=== PATIENT | male | born 1975 | race Hispanic/Latino ===

== ENCOUNTER → 2019-03-26 | Outpatient (CLI) | payer BC ==
[~2019-03-26] MED LIST: FLOMAX0.4 MG PO
--- NOTE | 2019-03-26 12:46 | Diagnostic Imaging Report ---
Exam: KUB - 2 views Clinical History: Renal calculus Comparison: None Findings: Right internal nephroureteral stent in place. 6 mm calcific density projecting over the right proximal ureter just lateral to the stent is consistent with ureteral calculus. No other radiographically apparent urinary calculi. Nonobstructive bowel gas pattern. No free air. Degenerative changes of both hip joints. Impression: 6 mm right ureteral calculus. Right internal nephroureteral stent in place. Signed by: Harvey Sewell MD on 03/26/2019 12:43 PM
== END ==
LOC: RAD 10:52
PROVIDERS: ATTEND Family Medicine
DX: N20.0 Calculus of kidney (principal)
CPT/HCPCS: 74018

== ENCOUNTER → 2019-04-13 | Day surgery (SDC) | payer BC ==
[~2019-04-13] MED LIST changes: +ACETAMINOPHEN/CODEINE 300MG - 30MG TAB ONE; +CEFAZOLIN SOD 1 GM/NS 50ML 50 ML IV ONE; +DEXAMETHASONE SOD PHOS INJ 4 MG/ML VIAL ONE; +FENTANYL CITRATE/PF 100MCG/2 ML INJ ONE; +LIDOCAINE HCL 2% LOCAL INJ 5 ML SDV VIAL INJ ONE; +MIDAZOLAM HCL 2 MG/2 ML VIAL ONE; +ONDANSETRON HCL INJ 2MG/ML 2ML 2 MG/ML VIAL ONE; +PROMETHAZINE HCL (IM) 25 MG/ML VIAL ONE; +PROPOFOL IV EMULSION 10 MG/ML 20 ML VIAL ONE; +SEVOFLURANE INHAL SOLN 250 ML PEN BTL ONE
[2019-04-13 12:25] VITALS: BP 104/75
--- NOTE | 2019-04-13 16:08 | Operative Report ---
DATE OF PROCEDURE: 04/13/2019 SURGEON: Elaine Bonilla MD SERVICE: Urology. PREOPERATIVE DIAGNOSES: 1. Right upper ureter calculus. 2. Right double-J stent. 3. Microhematuria. POSTOPERATIVE DIAGNOSES: 1. Right upper ureter calculus. 2. Right double-J stent. 3. Microhematuria. OPERATION PERFORMED: ESWL lithotripsy of a stone. SUPERINTENDENT RECREATION: None. ANESTHESIA: General. CLINICAL INDICATION: Note, this is a 44-year-old patient, presented with stone in the upper ureter on the right side, this has stones, were manipulated, double-J stent was placed on the right side. The patient was brought for lithotripsy. Procedure was discussed with the patient and his . He knows that this is just one step in the management, may require additional procedures. The procedure was described and knows what is going to be done. DESCRIPTION OF PROCEDURE AND FINDINGS: After appropriate level of anesthesia was achieved, the patient was placed in supine position. The stone was brought to the focus of treatment and treated with 3000 shock. The 1st 360 per minute and then it was moved to 90 per minute and eventually 120 per minute. The stone disintegrated very well. The patient's procedure went well, he was transferred in satisfactory condition to recovery room after the procedure. Postoperative all of this given. He will be followed in 2 weeks in the office for further plan of management. Elaine Bonilla MD [facility] /[id number]
== END | disposition home or self-care (01) ==
LOC: OR 06:14
PROVIDERS: ATTEND Urology
DX: N20.1 Calculus of ureter (principal); Z96.0 Presence of urogenital implants; Z01.810 Encounter for preprocedural cardiovascular examination
CPT/HCPCS: 50590; 93005; J0690; J1100; J2001; J2250; J2405; J2550; J2704; J3010

== ENCOUNTER → 2019-04-30 | Outpatient (CLI) | payer BC ==
[~2019-04-30] MED LIST changes: -ACETAMINOPHEN/CODEINE 300MG - 30MG TAB ONE; -CEFAZOLIN SOD 1 GM/NS 50ML 50 ML IV ONE; -DEXAMETHASONE SOD PHOS INJ 4 MG/ML VIAL ONE; -FENTANYL CITRATE/PF 100MCG/2 ML INJ ONE; -LIDOCAINE HCL 2% LOCAL INJ 5 ML SDV VIAL INJ ONE; -MIDAZOLAM HCL 2 MG/2 ML VIAL ONE; -ONDANSETRON HCL INJ 2MG/ML 2ML 2 MG/ML VIAL ONE; -PROMETHAZINE HCL (IM) 25 MG/ML VIAL ONE; -PROPOFOL IV EMULSION 10 MG/ML 20 ML VIAL ONE; -SEVOFLURANE INHAL SOLN 250 ML PEN BTL ONE
--- NOTE | 2019-04-30 13:09 | Diagnostic Imaging Report ---
Exam: KUB Clinical history: Nephrolithiasis Comparison: April 26, 2019 Findings: A right internal ureteral stent is again noted unchanged in position. A 5 mm calcific density structure is seen overlying the proximal right ureter most consistent with ureterolithiasis. This is relatively stable compared to the prior study. There is nonobstructive bowel gas pattern. The regional osseous structures are unremarkable. Impression: 1. Stable appearing right ureterolithiasis. Signed by: Dr. Guilherme Millan MD on 04/30/2019 1:06 PM
== END ==
LOC: RAD 11:55
PROVIDERS: ATTEND Urology
DX: N20.0 Calculus of kidney (principal)
CPT/HCPCS: 74018

== ENCOUNTER → 2019-05-19 | Day surgery (SDC) | payer BC ==
[~2019-05-19] MED LIST changes: +ALLOPURINOL100 MG PO; +B&O 60MG R/S 60 MG SUPP PR ONE; +CEFAZOLIN SOD 1 GM/NS 50ML 50 ML IV ONE; +DEXAMETHASONE SOD PHOS INJ 4 MG/ML VIAL ONE; +FENTANYL CITRATE/PF 100MCG/2 ML INJ ONE; +IOPAMIDOL 300MG/ML 50ML INFUS..BTL IV ONE; +IRBESARTAN-HCT1 EAC1 PO; +KETOROLAC TROMETHAMINE 30 MG/ML VIAL ONE; +LIDOCAINE HCL 2% LOCAL INJ 5 ML SDV VIAL INJ ONE; +MIDAZOLAM HCL 2 MG/2 ML VIAL ONE; +MITIGARE PO; +ONDANSETRON HCL INJ 2MG/ML 2ML 2 MG/ML VIAL ONE; +PROPOFOL IV EMULSION 10 MG/ML 20 ML VIAL ONE; +SEVOFLURANE INHAL SOLN 250 ML PEN BTL ONE; +ZOLPIDEM TARTRA10 MG PO
--- OUTSIDE RECORDS SUMMARY | 2019-05-19 06:14 | XMS REPORT ---
[facility] Address Unknown Phone Unavailable Care Team Providers Care Advertising Campaign Manager Name Role Phone ELAINE BONILLA Unavailable Unavailable GUILHERME ADLER Unavailable Unavailable Payers Payer Name Policy Type Policy Number Effective Date Expiration Date Problems This patient has no known problems. Allergies, Adverse Reactions, Alerts Allergy Name Allergy Type Status Severity Reaction(s) Onset Date Inactive Date Treating Clinician Comments No Known Allergies DA Active U 2019-03-05 00:00:00 Medications This patient has no known medications. Results Test Description Test Time Test Comments Text Results Atomic Results Result Comments ABDOMEN-1VIEW (DARYN) 2019-04-30 13:04:00 [place] [address] Patient Name: DILIP LAWRENCE MR #: [id number] : 1975 Age/Sex: 44/M Req #: [id number] Adm Physician: Ordered by: ELAINE BONILLA MD Report #: [id number] Location: [facility] Room/Bed: Procedure: [id number] DX/ABDOMEN-1VIEW (MADDISONB) Exam Date: 04/30/19 Exam Time: 1235 REPORT STATUS: Signed Exam: KUB Clinical history: Nephrolithiasis Comparison: April 26, 2019 Findings: A right internal ureteral stent is again noted unchanged in position. A 5 mm calcific density structure is seen overlying the proximal right ureter most consistent with ureterolithiasis. This is relatively stable compared to the prior study. There is nonobstructive bowel gas pattern. The regional osseous structures are unremarkable. Impression: 1. Stable appearing right ureterolithiasis. Signed by: Dr. Guilherme Millan MD on 04/30/2019 1:06 PM Dictated By: KODY MILLAN MD 1306 Transcribed By: SHAYE on 04/30/19 1306 COPY TO: ELAINE BONILLA MD ABDOMEN-1VIEW (KUB) 2019-03-26 12:42:00 [place] [address] Patient Name: DILIP LAWRENCE MR #: [id number] : 1975 Age/Sex: 44/M Req #: [id number] Adm Physician: Ordered by: GUILHERME ADLER Report #: [id number] Location: [facility] Room/Bed: Procedure: [id number] DX/ABDOMEN-1VIEW (KUB) Exam Date: Exam Time: REPORT STATUS: Signed Exam: KUB - 2 views Clinical History: Renal calculus Reinaldo rison: None Findings: Right internal nephroureteral stent in place. 6 mm calcific density projecting over the right proximal ureter just lateral to the stent is consistent with ureteral calculus. No other radiographically apparent urinary calculi. Nonobstructive bowel gas pattern. No free air. Degenerative changes of both hip joints. Impression: 6 mm right ureteral calculus. R ight internal nephroureteral stent in place. Signed by: Juancarlos Lee MD on 03/26/2019 12:43 PM Dictated By: JUANCARLOS LEE MD 1243 Transcribed By: SHAYE on 03/26/19 1243 COPY TO: GUILHERME ADLER BASIC METABOLIC PANEL 2019-03-10 06:03:00 SODIUM (test code=NA) 141 mmol/L 136-145 POTASSIUM (test code=K) 3.9 mmol/L 3.5-5.1 CHLORIDE (test code=CL) 108.0 mmol/L 98-107 CARBON DIOXIDE (test code=CO2) 27.0 mmol/L 21-32 ANION GAP (test code=GAP) 9.9 10-20 GLUCOSE (test code=GLU) 93 mg/dL 74-106 BLOOD UREA NITROGEN (test code=BUN) 15 mg/dL 7-18 GLOMERULAR FILTRATION RATE (test code=GFR) > 60 mL/min >=60 Estimated GFR by using Modified MDRD formula.Chronic kidney disease is defined as either kidney damageor GFR <60 mL/min/1.73 m2 for >3 months. CREATININE (test code=CREAT) 0.80 mg/dL 0.7-1.3 BUN/CREATININE RATIO (test code=BUN/CREA) 18.9 10-20 CALCIUM (test code=CA) 8.8 mg/dL 8.5-10.1 BASIC METABOLIC [id number] 06:00:00* Test Item Value Reference Range Comments SODIUM (test code=NA) 141 mmol/L 136-145 POTASSIUM (test code=K) 3.9 mmol/L 3.5-5.1 CHLORIDE (test code=CL) 108.0 mmol/L 98-107 CARBON DIOXIDE (test code=CO2) mmol/L 21-32 ANION GAP (test code=GAP) 10-20 GLUCOSE (test code=GLU) mg/dL 74-106 BLOOD UREA NITROGEN (test code=BUN) mg/dL 7-18 GLOMERULAR FILTRATION RATE (test code=GFR) mL/min >=60 CREATININE (test code=CREAT) mg/dL 0.7-1.3 BUN/CREATININE RATIO (test code=BUN/CREA) 10-20 CALCIUM (test code=CA) mg/dL 8.5-10.1 CBC W/AUTO [id number] 05:12:00* Test Item Value Reference Range Comments WHITE BLOOD CELL (test code=WBC) 5.6 K/mm3 4.5-12.5 RED BLOOD CELL (test code=RBC) 4.12 mill/mm3 4.0-5.8 HEMOGLOBIN (test code=HGB) 12.7 gram/dL 13.0-17.5 HEMATOCRIT (test code=HCT) 39.7 % 42.0-52.0 MEAN CELL VOLUME (test code=MCV) 96.4 fL 80-98 MEAN CELL HGB (test code=MCH) 30.8 picogram 27.0-33.0 MEAN CELL HGB CONCETRATION (test code=MCHC) 32.0 gram/dL 33.0-36.0 RED CELL DISTRIBUTION WIDTH (test code=RDW) 12.7 % 11.6-16.2 RED CELL DISTRIBUTION WIDTH SD (test code=RDW-SD) 45.1 fL 37.0-51.0 PLATELET COUNT (test code=PLT) 203 K/mm3 150-450 MEAN PLATELET VOLUME (test code=MPV) 11.0 fL 6.7-11.0 NEUTROPHIL % (test code=NT%) 51.7 % 39.0-69.0 IMMATURE GRANULOCYTE % (test code=IG%) 0.2 % 0.0-5.0 LYMPHOCYTE % (test code=LY%) 33.9 % 25.0-55.0 MONOCYTE % (test code=MO%) 8.9 % 0.0-10.0 EOSINOPHIL % (test code=EO%) 4.8 % 0.0-5.0 BASOPHIL % (test code=BA%) 0.5 % 0.0-1.0 NUCLEATED RBC % (test code=NRBC%) 0.0 % 0-0 NEUTROPHIL # (test code=NT#) 2.90 K/mm3 1.8-7.7 IMMATURE GRANULOCYTE # (test code=IG#) 0.01 x10 3/uL 0-0.03 LYMPHOCYTE # (test code=LY#) 1.90 K/mm3 1.0-5.0 MONOCYTE # (test code=MO#) 0.50 K/mm3 0-0.8 EOSINOPHIL # (test code=EO#) 0.27 K/mm3 0.0-0.5 BASOPHIL # (test code=BA#) 0.03 K/mm3 0.0-0.2 NUCLEATED RBC # (test code=NRBC#) 0.00 K/mm3 0.0-0.1 PROCALCITONIN (PCT)2019-03-09 11:19:00* Test Item Value Reference Range Comments PROCALCITONIN (PCT) (test code=PROCAL) < 0.05 ng/ml Concentration Interpretation (ng/mL) <0.51 Sepsis is not likely. Local bacterial infection is possible. (LOW RISK for progression to Sepsis) 0.51 - 2.00 Sepsis is possible, but other conditions are known to elevate PCT as well. (MODERATE RISK for progression to Sepsis) > 2.00 Sepsis is likely, unless other causes are known. (HIGH RISK for progression to Severe Sepsis or Septic Shock) 10.00 High likelihood of Severe Sepsis or Septic or higher Shock. *Increased PCT levels may not always be related to systemic bacterial infection.*Low PCT levels do not automatically exclude the presence of bacterial infection.*All results should be interpreted taking into account the patients history. - XR CHEST 1 [id number] 11:10:00 FAX: Ellen Reyes MD [phone] Downs: St: ADM FAX: Lazarus Campo MD [phone] Name: DILIP REYNA [facility] : 1975 Age/S: 44/M [address] [facility] Unit #: [id number] Loc: [address] [address] Phys: Ellen Garcia MD Acct: [id number] Dis Date: Status: ADM IN PHONE #: [phone] Exam Date: 03/09/2019 1049 FAX #: [phone] Reason: PNA EXAMS: CPT CODE: [id number] XR CHEST 1 V 20633 HISTORY: Pneumonia. COMPARISON: None available. No acute infiltrates, effusion or congestion is noted. Dependent changes. Cardiomegaly. IMPRESSION: No acute infiltrates, effusion or congestion. at 1110 Reported and signed by: Edy Livingston M.D. CC: Ellen Garcia MD; Lazarus Huber MD Technologist: Raven Montez RT(R); STUDENT TECH NOLOGIST Trnscrd Date/Time/By: 03/09/2019 (1110) : By: [email or web address] Orig Print D/T: S: 03/09/2019 (9003) PAGE 1 Signed Report BASIC METABOLIC [id number] 06:31:00* Test Item Value Reference Range Comments SODIUM (test code=NA) 142 mmol/L 136-145 POTASSIUM (test code=K) 4.4 mmol/L 3.5-5.1 CHLORIDE (test code=CL) 110.0 mmol/L 98-107 CARBON DIOXIDE (test code=CO2) 27.0 mmol/L 21-32 ANION GAP (test code=GAP) 9.4 10-20 GLUCOSE (test code=GLU) 95 mg/dL 74-106 BLOOD UREA NITROGEN (test code=BUN) 13 mg/dL 7-18 GLOMERULAR FILTRATION RATE (test code=GFR) > 60 mL/min >=60 Estimated GFR by using Modified MDRD formula.Chronic kidney disease is defined as either kidney damageor GFR <60 mL/min/1.73 m2 for >3 months. CREATININE (test code=CREAT) 0.80 mg/dL 0.7-1.3 BUN/CREATININE RATIO (test code=BUN/CREA) 15.9 10-20 CALCIUM (test code=CA) 8.7 mg/dL 8.5-10.1 CBC W/AUTO [id number] 05:46:00* Test Item Value Reference Range Comments WHITE BLOOD CELL (test code=WBC) 6.7 K/mm3 4.5-12.5 RED BLOOD CELL (test code=RBC) 3.93 mill/mm3 4.0-5.8 HEMOGLOBIN (test code=HGB) 12.0 gram/dL 13.0-17.5 HEMATOCRIT (test code=HCT) 37.3 % 42.0-52.0 MEAN CELL VOLUME (test code=MCV) 94.9 fL 80-98 MEAN CELL HGB (test code=MCH) 30.5 picogram 27.0-33.0 MEAN CELL HGB CONCETRATION (test code=MCHC) 32.2 gram/dL 33.0-36.0 RED CELL DISTRIBUTION WIDTH (test code=RDW) 13.0 % 11.6-16.2 RED CELL DISTRIBUTION WIDTH SD (test code=RDW-SD) 45.7 fL 37.0-51.0 PLATELET COUNT (test code=PLT) 192 K/mm3 150-450 MEAN PLATELET VOLUME (test code=MPV) 11.1 fL 6.7-11.0 NEUTROPHIL % (test code=NT%) 61.6 % 39.0-69.0 IMMATURE GRANULOCYTE % (test code=IG%) 0.3 % 0.0-5.0 LYMPHOCYTE % (test code=LY%) 27.0 % 25.0-55.0 MONOCYTE % (test code=MO%) 7.9 % 0.0-10.0 EOSINOPHIL % (test code=EO%) 2.8 % 0.0-5.0 BASOPHIL % (test code=BA%) 0.4 % 0.0-1.0 NUCLEATED RBC % (test code=NRBC%) 0.0 % 0-0 NEUTROPHIL # (test code=NT#) 4.13 K/mm3 1.8-7.7 IMMATURE GRANULOCYTE # (test code=IG#) 0.02 x10 3/uL 0-0.03 LYMPHOCYTE # (test code=LY#) 1.81 K/mm3 1.0-5.0 MONOCYTE # (test code=MO#) 0.53 K/mm3 0-0.8 EOSINOPHIL # (test code=EO#) 0.19 K/mm3 0.0-0.5 BASOPHIL # (test code=BA#) 0.03 K/mm3 0.0-0.2 NUCLEATED RBC # (test code=NRBC#) 0.00 K/mm3 0.0-0.1 MANUAL DIFF REQUIRED (test code=MDIFF) NO BASIC METABOLIC [id number] 07:59:00* Test Item Value Reference Range Comments SODIUM (test code=NA) 143 mmol/L 136-145 POTASSIUM (test code=K) 3.5 mmol/L 3.5-5.1 CHLORIDE (test code=CL) 110.0 mmol/L 98-107 CARBON DIOXIDE (test code=CO2) 28.0 mmol/L 21-32 ANION GAP (test code=GAP) 8.5 10-20 GLUCOSE (test code=GLU) 85 mg/dL 74-106 BLOOD UREA NITROGEN (test code=BUN) 11 mg/dL 7-18 GLOMERULAR FILTRATION RATE (test code=GFR) > 60 mL/min >=60 Estimated GFR by using Modified MDRD formula.Chronic kidney disease is defined as either kidney damageor GFR <60 mL/min/1.73 m2 for >3 months. CREATININE (test code=CREAT) 0.80 mg/dL 0.7-1.3 BUN/CREATININE RATIO (test code=BUN/CREA) 13.7 10-20 CALCIUM (test code=CA) 8.6 mg/dL 8.5-10.1 CBC W/AUTO [id number] 07:25:00* Test Item Value Reference Range Comments WHITE BLOOD CELL (test code=WBC) 5.2 K/mm3 4.5-12.5 RED BLOOD CELL (test code=RBC) 4.00 mill/mm3 4.0-5.8 HEMOGLOBIN (test code=HGB) 12.3 gram/dL 13.0-17.5 HEMATOCRIT (test code=HCT) 37.9 % 42.0-52.0 MEAN CELL VOLUME (test code=MCV) 94.8 fL 80-98 MEAN CELL HGB (test code=MCH) 30.8 picogram 27.0-33.0 MEAN CELL HGB CONCETRATION (test code=MCHC) 32.5 gram/dL 33.0-36.0 RED CELL DISTRIBUTION WIDTH (test code=RDW) 13.0 % 11.6-16.2 RED CELL DISTRIBUTION WIDTH SD (test code=RDW-SD) 44.9 fL 37.0-51.0 PLATELET COUNT (test code=PLT) 203 K/mm3 150-450 MEAN PLATELET VOLUME (test code=MPV) 11.1 fL 6.7-11.0 NEUTROPHIL % (test code=NT%) 54.0 % 39.0-69.0 IMMATURE GRANULOCYTE % (test code=IG%) 0.2 % 0.0-5.0 LYMPHOCYTE % (test code=LY%) 34.6 % 25.0-55.0 MONOCYTE % (test code=MO%) 7.5 % 0.0-10.0 EOSINOPHIL % (test code=EO%) 3.1 % 0.0-5.0 BASOPHIL % (test code=BA%) 0.6 % 0.0-1.0 NUCLEATED RBC % (test code=NRBC%) 0.0 % 0-0 NEUTROPHIL # (test code=NT#) 2.80 K/mm3 1.8-7.7 IMMATURE GRANULOCYTE # (test code=IG#) 0.01 x10 3/uL 0-0.03 LYMPHOCYTE # (test code=LY#) 1.79 K/mm3 1.0-5.0 MONOCYTE # (test code=MO#) 0.39 K/mm3 0-0.8 EOSINOPHIL # (test code=EO#) 0.16 K/mm3 0.0-0.5 BASOPHIL # (test code=BA#) 0.03 K/mm3 0.0-0.2 NUCLEATED RBC # (test code=NRBC#) 0.00 K/mm3 0.0-0.1 BASIC METABOLIC [id number] 07:28:00* Test Item Value Reference Range Comments SODIUM (test code=NA) 144 mmol/L 136-145 POTASSIUM (test code=K) 3.8 mmol/L 3.5-5.1 CHLORIDE (test code=CL) 112.0 mmol/L 98-107 CARBON DIOXIDE (test code=CO2) 25.0 mmol/L 21-32 ANION GAP (test code=GAP) 10.8 10-20 GLUCOSE (test code=GLU) 102 mg/dL 74-106 BLOOD UREA NITROGEN (test code=BUN) 21 mg/dL 7-18 GLOMERULAR FILTRATION RATE (test code=GFR) > 60 mL/min >=60 Estimated GFR by using Modified MDRD formula.Chronic kidney disease is defined as either kidney damageor GFR <60 mL/min/1.73 m2 for >3 months. CREATININE (test code=CREAT) 1.00 mg/dL 0.7-1.3 BUN/CREATININE RATIO (test code=BUN/CREA) 21.5 10-20 CALCIUM (test code=CA) 8.4 mg/dL 8.5-10.1 CBC W/AUTO [id number] 06:58:00* Test Item Value Reference Range Comments WHITE BLOOD CELL (test code=WBC) 6.1 K/mm3 4.5-12.5 RED BLOOD CELL (test code=RBC) 3.93 mill/mm3 4.0-5.8 HEMOGLOBIN (test code=HGB) 12.1 gram/dL 13.0-17.5 HEMATOCRIT (test code=HCT) 38.6 % 42.0-52.0 MEAN CELL VOLUME (test code=MCV) 98.2 fL 80-98 MEAN CELL HGB (test code=MCH) 30.8 picogram 27.0-33.0 MEAN CELL HGB CONCETRATION (test code=MCHC) 31.3 gram/dL 33.0-36.0 RED CELL DISTRIBUTION WIDTH (test code=RDW) 13.0 % 11.6-16.2 RED CELL DISTRIBUTION WIDTH SD (test code=RDW-SD) 46.4 fL 37.0-51.0 PLATELET COUNT (test code=PLT) 185 K/mm3 150-450 MEAN PLATELET VOLUME (test code=MPV) 10.4 fL 6.7-11.0 NEUTROPHIL % (test code=NT%) 55.6 % 39.0-69.0 IMMATURE GRANULOCYTE % (test code=IG%) 0.3 % 0.0-5.0 LYMPHOCYTE % (test code=LY%) 33.1 % 25.0-55.0 MONOCYTE % (test code=MO%) 7.2 % 0.0-10.0 EOSINOPHIL % (test code=EO%) 3.5 % 0.0-5.0 BASOPHIL % (test code=BA%) 0.3 % 0.0-1.0 NUCLEATED RBC % (test code=NRBC%) 0.0 % 0-0 NEUTROPHIL # (test code=NT#) 3.38 K/mm3 1.8-7.7 IMMATURE GRANULOCYTE # (test code=IG#) 0.02 x10 3/uL 0-0.03 LYMPHOCYTE # (test code=LY#) 2.01 K/mm3 1.0-5.0 MONOCYTE # (test code=MO#) 0.44 K/mm3 0-0.8 EOSINOPHIL # (test code=EO#) 0.21 K/mm3 0.0-0.5 BASOPHIL # (test code=BA#) 0.02 K/mm3 0.0-0.2 NUCLEATED RBC # (test code=NRBC#) 0.00 K/mm3 0.0-0.1 - XR ABDOMEN AP 1 [id number] 17:12:00 FAX: Lazarus Campo MD [phone] Downs: St: [facility] FAX: Elaine Borrero MD [phone] Name: DILIP REYNA [facility] : 1975 Age/S: 44/M [address] [facility] Unit #: [id number] Loc: V.[address] [place] [address] Phys: Elaine Bonilla MD Acct: [id number] Dis Date: Status: ADM IN PHONE #: [phone] Exam Date: 03/06/2019 1700 FAX #: [phone] Reason: KIDNEY STONES EXAMS: CPT CODE: [id number] XR ABDOMEN AP 1 V 32241 HISTORY: KIDNEY STONES TECHNIQUE: AP abdomen x-ray COMPARISON: CT 03/05/19 FINDINGS: Previously reported proximal right ureteral calculus is no longer demonstrated. Colonic fecal retention. Nonobstructive bowel gas pattern. No intra-abdominal mass effect. Regional osseous structures are intact. IMPRESS ION: Previously reported proximal right ureteral calculus is no longer demonstrated at 1712 Reported and signed by: Samaria lopez D.O. CC: Lazarus Campo MD; Elaine Bonilla MD Technologist: Aury Karimi Trnscrd Date/Time/By: 03/06/2019 (8648) : By: [email or web address] Orig Print D/ T: S: 03/06/2019 (6011) PAGE 1 Si gned Report COMPREHENSIVE METABOLIC PANEL 2019-03-06 03:42:00* Test Item Value Reference Range Comments SODIUM (test code=NA) 140 mmol/L 136-145 POTASSIUM (test code=K) 4.6 mmol/L 3.5-5.1 CHLORIDE (test code=CL) 109.0 mmol/L 98-107 CARBON DIOXIDE (test code=CO2) 28.0 mmol/L 21-32 ANION GAP (test code=GAP) 7.6 10-20 GLUCOSE (test code=GLU) 112 mg/dL 74-106 BLOOD UREA NITROGEN (test code=BUN) 28 mg/dL 7-18 GLOMERULAR FILTRATION RATE (test code=GFR) > 60 mL/min >=60 Estimated GFR by using Modified MDRD formula.Chronic kidney disease is defined as either kidney damageor GFR <60 mL/min/1.73 m2 for >3 months. CREATININE (test code=CREAT) 1.20 mg/dL 0.7-1.3 BUN/CREATININE RATIO (test code=BUN/CREA) 23.3 10-20 TOTAL PROTEIN (test code=PROT) 6.6 gram/dL 6.4-8.2 ALBUMIN (test code=ALB) 3.8 g/dL 3.4-5.0 GLOBULIN (test code=GLOB) 2.8 gram/dL 2.7-4.2 ALBUMIN/GLOBULIN RATIO (test code=A/G) 1.4 0.75-1.50 CALCIUM (test code=CA) 8.5 mg/dL 8.5-10.1 BILIRUBIN TOTAL (test code=BILT) 0.40 mg/dL 0.0-1.0 SGOT/AST (test code=AST) 19 IUnit/L 15-37 SGPT/ALT (test code=ALT) 29 IUnit/L 12-78 ALKALINE PHOSPHATASE TOTAL (test code=ALKP) 91 IUnit/L 45-117 Note change in reference range due to change in reagent. [id number] 03:42:00* Test Item Value Reference Range Comments MAGNESIUM (test code=MAG) 2.2 mg/dL 1.8-2.4 THYROID STIMULATING [id number] 03:42:00* Test Item Value Reference Range Comments THYROID STIMULATING HORMONE (test code=TSH) 1.550 uIU/mL 0.36-3.74 TSH REFERENCE RANGES: EUTHYROID: 0.35 - 4.3 mIU/mL HYPO : > 5.5 mIU/mL HYPER : < 0.35 mIU/mL PROTHROMBIN [id number] 03:42:00* Test Item Value Reference Range Comments PROTHROMBIN TIME PATIENT (test code=PTP) 13.4 seconds 9.0-14.0 INTERNATIONAL NORMAL RATIO (test code=INR) 1.1 0.8-1.2 The therapeutic range for oral anticoagulant therapy formost indications is an international normalized ratio (INR)of between 2.0 and 3.0. The recommended therapeutic INRrange for various clinical situations is listed below: Clinical Situation INR range Pulmonary e mbolism treatment (2.0-3.0)Venous thrombosis treatmentVenous thrombosis prophylaxis (high risk surgery)Prevention of systemic embolism from: Acute myocardial infarction Valvular heart disease Atrial fibrillation Mechanical prosthetic heart valves (2.5-3.5) IS PATIENT ON ANTICOAGULANTS? NCOMPREHENSIVE METABOLIC [id number] 03:33:00 * Test Item Value Reference Range Comments SODIUM (test code=NA) 140 mmol/L 136-145 POTASSIUM (test code=K) 4.6 mmol/L 3.5-5.1 CHLORIDE (test code=CL) 109.0 mmol/L 98-107 CARBON DIOXIDE (test code=CO2) mmol/L 21-32 ANION GAP (test code=GAP) 10-20 GLUCOSE (test code=GLU) mg/dL 74-106 BLOOD UREA NITROGEN (test code=BUN) mg/dL 7-18 GLOMERULAR FILTRATION RATE (test code=GFR) mL/min >=60 CREATININE (test code=CREAT) mg/dL 0.7-1.3 BUN/CREATININE RATIO (test code=BUN/CREA) 10-20 TOTAL PROTEIN (test code=PROT) gram/dL 6.4-8.2 ALBUMIN (test code=ALB) g/dL 3.4-5.0 GLOBULIN (test code=GLOB) gram/dL 2.7-4.2 ALBUMIN/GLOBULIN RATIO (test code=A/G) 0.75-1.50 CALCIUM (test code=CA) mg/dL 8.5-10.1 BILIRUBIN TOTAL (test code=BILT) mg/dL 0.0-1.0 SGOT/AST (test code=AST) IUnit/L 15-37 SGPT/ALT (test code=ALT) IUnit/L 12-78 ALKALINE PHOSPHATASE TOTAL (test code=ALKP) IUnit/L 45-117 [id number] 03:33:00* Test Item Value Reference Range Comments MAGNESIUM (test code=MAG) mg/dL 1.8-2.4 THYROID STIMULATING [id number] 03:33:00* Test Item Value Reference Range Comments THYROID STIMULATING HORMONE (test code=TSH) uIU/mL 0.36-3.74 CBC W/AUTO [id number] 03:30:00* Test Item Value Reference Range Comments WHITE BLOOD CELL (test code=WBC) 13.2 K/mm3 4.5-12.5 RED BLOOD CELL (test code=RBC) 3.98 mill/mm3 4.0-5.8 HEMOGLOBIN (test code=HGB) 12.4 gram/dL 13.0-17.5 HEMATOCRIT (test code=HCT) 38.4 % 42.0-52.0 MEAN CELL VOLUME (test code=MCV) 96.5 fL 80-98 MEAN CELL HGB (test code=MCH) 31.2 picogram 27.0-33.0 MEAN CELL HGB CONCETRATION (test code=MCHC) 32.3 gram/dL 33.0-36.0 RED CELL DISTRIBUTION WIDTH (test code=RDW) 12.9 % 11.6-16.2 RED CELL DISTRIBUTION WIDTH SD (test code=RDW-SD) 45.9 fL 37.0-51.0 PLATELET COUNT (test code=PLT) 223 K/mm3 150-450 MEAN PLATELET VOLUME (test code=MPV) 10.4 fL 6.7-11.0 NEUTROPHIL % (test code=NT%) 79.3 % 39.0-69.0 IMMATURE GRANULOCYTE % (test code=IG%) 0.4 % 0.0-5.0 LYMPHOCYTE % (test code=LY%) 11.8 % 25.0-55.0 MONOCYTE % (test code=MO%) 7.9 % 0.0-10.0 EOSINOPHIL % (test code=EO%) 0.4 % 0.0-5.0 BASOPHIL % (test code=BA%) 0.2 % 0.0-1.0 NUCLEATED RBC % (test code=NRBC%) 0.0 % 0-0 NEUTROPHIL # (test code=NT#) 10.48 K/mm3 1.8-7.7 IMMATURE GRANULOCYTE # (test code=IG#) 0.05 x10 3/uL 0-0.03 LYMPHOCYTE # (test code=LY#) 1.56 K/mm3 1.0-5.0 MONOCYTE # (test code=MO#) 1.04 K/mm3 0-0.8 EOSINOPHIL # (test code=EO#) 0.05 K/mm3 0.0-0.5 BASOPHIL # (test code=BA#) 0.02 K/mm3 0.0-0.2 NUCLEATED RBC # (test code=NRBC#) 0.00 K/mm3 0.0-0.1 MANUAL DIFF REQUIRED (test code=MDIFF) NO URINALYSIS [id number] 21:01:00* Test Item Value Reference Range Comments UA COLOR (test code=COLU) YELLOW YELLOW UA APPEARANCE (test code=APPU) TURBID CLEAR UA GLUCOSE DIPSTICK (test code=DGLUU) NEGATIVE mg/dL NEGATIVE UA BILIRUBIN DIPSTICK (test code=BILU) NEGATIVE mg/dL NEGATIVE UA KETONE DIPSTICK (test code=KETU) NEGATIVE mg/dL NEGATIVE UA SPECIFIC GRAVITY (test code=SGU) 1.042 1.001-1.035 UA BLOOD DIPSTICK (test code=LINO) 0.2 mg/dL (2+) mg/dL NEGATIVE UA PH DIPSTICK (test code=SILVER) 5.5 5.0-8.0 UA PROTEIN DIPSTICK (test code=PROU) 100 (2+) mg/dL NEGATIVE UA UROBILINIOGEN DIPSTICK (test code=URO) 2.0 (1+) mg/dL NEGATIVE UA NITRITE DIPSTICK (test code=JACOBO) NEGATIVE NEGATIVE UA LEUKOCYTE ESTERASE W REFLEX (test code=LEUUR) NEGATIVE Venkat/uL NEGATIVE UA WBC (test code=WBCU) 51-100 per HPF 0-5 UA RBC (test code=RBCU) 6-10 #/HPF 0-5 UA WBC CLUMPS (test code=WBCUCL) >10 /HPF NONE UA EPITHELIAL CELLS (test code=EPIU) FEW per HPF FEW UA BACTERIA (test code=BACU) MANY #/HPF NONE UA MUCUS (test code=MUCU) MODERATE #/LPF FEW UA AMORPHOUS SEDIMENT (test code=AMORU) FEW #/LPF Urine Source? Clean CatchURINALYSIS [id number] 20:50:00* Test Item Value Reference Range Comments UA COLOR (test code=COLU) YELLOW YELLOW UA APPEARANCE (test code=APPU) TURBID CLEAR UA GLUCOSE DIPSTICK (test code=DGLUU) NEGATIVE mg/dL NEGATIVE UA BILIRUBIN DIPSTICK (test code=BILU) NEGATIVE mg/dL NEGATIVE UA KETONE DIPSTICK (test code=KETU) NEGATIVE mg/dL NEGATIVE UA SPECIFIC GRAVITY (test code=SGU) 1.042 1.001-1.035 UA BLOOD DIPSTICK (test code=LINO) 0.2 mg/dL (2+) mg/dL NEGATIVE UA PH DIPSTICK (test code=SILVER) 5.5 5.0-8.0 UA PROTEIN DIPSTICK (test code=PROU) 100 (2+) mg/dL NEGATIVE UA UROBILINIOGEN DIPSTICK (test code=URO) 2.0 (1+) mg/dL NEGATIVE UA NITRITE DIPSTICK (test code=JACOBO) NEGATIVE NEGATIVE UA LEUKOCYTE ESTERASE W REFLEX (test code=LEUUR) NEGATIVE Venkat/uL NEGATIVE UA WBC (test code=WBCU) per HPF 0-5 UA RBC (test code=RBCU) per HPF 0-5 UA EPITHELIAL CELLS (test code=EPIU) per HPF Few UA BACTERIA (test code=BACU) per HPF NONE Urine Source? Clean Catch- CT ABD PELVIS W/O [id number] 20:50:00 Name: DILIP REYNA [facility] : 1975 Age/S: 44 / M [address] Unit #: [id number] Loc: [place] [id number] Phys: Teri Pena [employer] Acct: [id number] Di s Date: Status: REG ER PHONE #: Exam Date: 03/05/20191948 FAX #: Reason: RIGHT FLANK PAIN EXAMS: CPT CODE: [id number] CT ABD PELVIS W/O CONT 75829 REASON FOR EXAM: RIGHT FL ANK PAIN EXAM ORDER DATE: 03/05/2019 7:33 PM Ordering M.D.: Ab Pena PROCEDURE: - CT ABD PELVIS W/O CONT no ncontrast axial CT images were acquired through the abdomen/pelvis at 5 mm intervals. Sagittal and coronal reformatted images were generated. Auto mated exposure control was utilized for this reduction. Phas es of contrast: None COMPARISON: None FINDINGS: The absence of IV contrast limits sensitivity of this exam for the detection of soft tissue pathology Visualized thorax: There are a few nodular and groundglass opacities in the right middle lobe medial segment and there are some centrilobular and tree-in-bud opacities in the right lower lobe (2/21). There are also a few nodules in the lateral segme nt of the right middle lobe (series 2 images 11 and 13) Hepa tobiliary system: Grossly normal Pancreas: Grossly normal Spleen: Grossly normal Adrenal glands: Grossly normal Genitourinary system: There is a 6 mm stone in the proximal right ureter with proximal hydroureter and hydronephrosis. There is also strandi ng of the right perinephric and proximal right periureteral fat suggesting inflammation. The left kidney and left ureter and bladder and reproductive organs are within normal limits. Gastrointestinal tract and appe ndix: Grossly normal Abdominal vascular structures: Grossly normal Peritoneum and retroperitoneum: No free fluid or free air. No om ental PAGE 1 Signed Report (CONTIN UED) Name: DILIP REYNA [facility] : 1975 Age/S: 44 / M [address] Unit #: [id number] Loc: [place] [address]23 Phys: Ab Mckenzie [employer] Acct: [id number] Dis Date: Status: REG ER PHONE #: [phone] Exam Date: 03/05/20191948 FAX #: Reason: RIGHT FLANK PAIN EXAMS: CPT CODE: [id number] CT ABD P CODY W/O CONT 43060 <Continued> or mesenteric masses. No abnormal lymph nodes. There is stranding of the right perinephric and proximal periureteral fat compatible with in flammation. Musculoskeletal structures and abdominal wall: Normal IMPRESSION: Proximal right ureter 6 mm stone with findin gs of ureteral obstruction. There are also inflammatory changes associat ed with the right kidney and proximal right ureter and superimposed infe ction cannot be excluded. Nodular and groundglass opacities in t he right middle and right lower lobes may represent aspiration and/or pn eumonia. Nodules in the lateral segment of the right middle lobe may rep resent additional foci of infection. Follow-up CT scan in 8-12 weeks aft er treatment is recommended to assess for resolution and exclude true pulmonary nodules. at 2049 Reported and signed by: Osmany Jackson CC: Ab Pena Technologist:Guilherme Sinha RT(R)(CT) CTDI: DLP: Trnscb D ate/Time: 03/05/2019 (2049) [id number] Orig Print D/T: S: 03/05/2019 (2052) PAGE 2 Signed Report BASIC METABOLIC [id number] 20:46:00* Test Item Value Reference Range Comments SODIUM (test code=NA) 139 mmol/L 136-145 POTASSIUM (test code=K) 4.2 mmol/L 3.5-5.1 CHLORIDE (test code=CL) 106.0 mmol/L 98-107 CARBON DIOXIDE (test code=CO2) 26.0 mmol/L 21-32 ANION GAP (test code=GAP) 11.2 10-20 GLUCOSE (test code=GLU) 115 mg/dL 74-106 BLOOD UREA NITROGEN (test code=BUN) 31 mg/dL 7-18 GLOMERULAR FILTRATION RATE (test code=GFR) 55 mL/min >=60 Estimated GFR by using Modified MDRD formula.Chronic kidney disease is defined as either kidney damageor GFR <60 mL/min/1.73 m2 for >3 months. CREATININE (test code=CREAT) 1.40 mg/dL 0.7-1.3 BUN/CREATININE RATIO (test code=BUN/CREA) 22.1 10-20 CALCIUM (test code=CA) 9.3 mg/dL 8.5-10.1 HEPATIC FUNCTION [id number] 20:46:00* Test Item Value Reference Range Comments TOTAL PROTEIN (test code=PROT) 7.7 gram/dL 6.4-8.2 ALBUMIN (test code=ALB) 4.3 g/dL 3.4-5.0 GLOBULIN (test code=GLOB) 3.4 gram/dL 2.7-4.2 ALBUMIN/GLOBULIN RATIO (test code=A/G) 1.3 0.75-1.50 BILIRUBIN TOTAL (test code=BILT) 0.30 mg/dL 0.0-1.0 BILIRUBIN DIRECT (test code=BILD) 0.09 mg/dL 0.0-0.20 SGOT/AST (test code=AST) 21 IUnit/L 15-37 SGPT/ALT (test code=ALT) 36 IUnit/L 12-78 ALKALINE PHOSPHATASE TOTAL (test code=ALKP) 98 IUnit/L 45-117 Note change in reference range due to change in reagent. [id number] 20:46:00* Test Item Value Reference Range Comments LIPASE (test code=LIP) 87 U/L 73.0-393.0 BASIC METABOLIC [id number] 20:34:00* Test Item Value Reference Range Comments SODIUM (test code=NA) 139 mmol/L 136-145 POTASSIUM (test code=K) 4.2 mmol/L 3.5-5.1 CHLORIDE (test code=CL) 106.0 mmol/L 98-107 CARBON DIOXIDE (test code=CO2) mmol/L 21-32 ANION GAP (test code=GAP) 10-20 GLUCOSE (test code=GLU) mg/dL 74-106 BLOOD UREA NITROGEN (test code=BUN) mg/dL 7-18 GLOMERULAR FILTRATION RATE (test code=GFR) mL/min >=60 CREATININE (test code=CREAT) mg/dL 0.7-1.3 BUN/CREATININE RATIO (test code=BUN/CREA) 10-20 CALCIUM (test code=CA) mg/dL 8.5-10.1 HEPATIC FUNCTION [id number] 20:34:00* Test Item Value Reference Range Comments TOTAL PROTEIN (test code=PROT) gram/dL 6.4-8.2 ALBUMIN (test code=ALB) g/dL 3.4-5.0 GLOBULIN (test code=GLOB) gram/dL 2.7-4.2 ALBUMIN/GLOBULIN RATIO (test code=A/G) 0.75-1.50 BILIRUBIN TOTAL (test code=BILT) mg/dL 0.0-1.0 BILIRUBIN DIRECT (test code=BILD) mg/dL 0.0-0.20 SGOT/AST (test code=AST) IUnit/L 15-37 SGPT/ALT (test code=ALT) IUnit/L 12-78 ALKALINE PHOSPHATASE TOTAL (test code=ALKP) IUnit/L 45-117 [id number] 20:34:00* Test Item Value Reference Range Comments LIPASE (test code=LIP) U/L 73.0-393.0 CBC W/O [id number] 20:28:00* Test Item Value Reference Range Comments WHITE BLOOD CELL (test code=WBC) 14.8 K/mm3 4.5-12.5 RED BLOOD CELL (test code=RBC) 4.31 mill/mm3 4.0-5.8 HEMOGLOBIN (test code=HGB) 13.3 gram/dL 13.0-17.5 HEMATOCRIT (test code=HCT) 41.5 % 42.0-52.0 MEAN CELL VOLUME (test code=MCV) 96.3 fL 80-98 MEAN CELL HGB (test code=MCH) 30.9 picogram 27.0-33.0 MEAN CELL HGB CONCETRATION (test code=MCHC) 32.0 gram/dL 33.0-36.0 RED CELL DISTRIBUTION WIDTH (test code=RDW) 12.7 % 11.6-16.2 PLATELET COUNT (test code=PLT) 256 K/mm3 150-450 MEAN PLATELET VOLUME (test code=MPV) 9.9 fL 6.7-11.0 CBC W/O [id number] 20:26:00* Test Item Value Reference Range Comments WHITE BLOOD CELL (test code=WBC) K/mm3 4.5-12.5 RED BLOOD CELL (test code=RBC) mill/mm3 4.0-5.8 HEMOGLOBIN (test code=HGB) 13.3 gram/dL 13.0-17.5 HEMATOCRIT (test code=HCT) % 42.0-52.0 MEAN CELL VOLUME (test code=MCV) fL 80-98 MEAN CELL HGB (test code=MCH) picogram 27.0-33.0 MEAN CELL HGB CONCETRATION (test code=MCHC) gram/dL 33.0-36.0 RED CELL DISTRIBUTION WIDTH (test code=RDW) % 11.6-16.2 PLATELET COUNT (test code=PLT) K/mm3 150-450 MEAN PLATELET VOLUME (test code=MPV) fL 6.7-11.0
[2019-05-19 09:45] VITALS: BP 109/75
--- NOTE | 2019-05-19 18:46 | Operative Report ---
DATE OF PROCEDURE: 05/19/2019 SURGEON: Elaine Bonilla MD SERVICE: Urology. PREOPERATIVE DIAGNOSES: 1. History of right nephrolithiasis. 2. Right double-J stent. 3. Renal colic. 4. Microhematuria. POSTOPERATIVE DIAGNOSES: 1. History of right nephrolithiasis. 2. Right double-J stent. 3. Renal colic. 4. Microhematuria. OPERATIONS PERFORMED: 1. Cystoscopy and left retrograde pyelograms under fluoroscopic control. This is done as part of the evaluation of microhematuria. 2. Removal of double-J stent from the right side. 3. Right retrograde pyelograms under fluoroscopic control. 4. Right diagnostic ureteroscopy. 5. Interpretation of x-ray, radiologist not present. 6. Supervision of fluoroscopy, radiologist not present. ABLE BODIED TANKERMAN: None. ANESTHESIA: General. CLINICAL INDICATION NOTE: This is a 44-year-old patient, who was brought for further treatment of nephrolithiasis. He has a double-J stent on the right side. He is planned to have assessment of both sides. Procedure was discussed with the patient. Potential benefits and complications discussed and accepted. DESCRIPTION OF PROCEDURE AND FINDINGS: After the appropriate level of anesthesia was achieved, he was placed in lithotomy position, prepped and draped in a sterile fashion. Urethra inspected with minimal narrowing of the bulbous urethra, but the scope passed easily. Bladder outlet was patent. Bladder mucosa was normal except for some edema around the right orifice. Double-J stent was protruding. Open-ended catheter inserted to the left UO. Retrograde pyelograms demonstrated normal upper collecting system. Following this, the double-J stent was removed from the right side. Open-ended catheter was kept in place and retrograde pyelogram demonstrating some dilation of the upper collecting system with no definitive stones could be seen. The wire was kept in place and a flexible ureteroscopy was done. Stone was not seen and therefore it was elected not to place a double-J. Interpretation of x-ray and supervision of fluoroscopy was done by md, radiologist not present. The patient tolerated the procedure well and was transferred in satisfactory condition to recovery room. He will be followed for further assessment and treatment of stones. Elaine Bonilla MD NH/MODL /[id number]
== END | disposition home or self-care (01) ==
LOC: OR 06:03
PROVIDERS: ATTEND Urology
DX: N20.0 Calculus of kidney (principal); Z87.442 Personal history of urinary calculi; R31.29 Other microscopic hematuria; N23 Unspecified renal colic; Z01.810 Encounter for preprocedural cardiovascular examination; Z96.0 Presence of urogenital implants
CPT/HCPCS: 52315; 74420; 93005; C1758; J0690; J1100; J1885; J2001; J2250; J2405; J2704; J3010; Q9967